=== PATIENT | female | born 1975 | race American Indian/Alaskan Native ===

== ENCOUNTER 2017-05-22 20:29 | Emergency (ER) | payer SELFPAY ==
[2017-05-22 20:39] VITALS: BP 162/95
== END 2017-05-23 02:30 | disposition left against medical advice (07) ==
LOC: ED 20:29
DX: H57.8 Other specified disorders of eye and adnexa (principal); Z53.21 Procedure and treatment not carried out due to patient leaving prior to being seen by health care provider